=== PATIENT | female | born 1985 | race Caucasian/White ===

== ENCOUNTER 2017-09-24 15:59 | Emergency (ER) | payer MEDICAID, OTHER ==
[~2017-09-24] VITALS: Ht 157.5 cm; Wt 62.1 kg
[2017-09-24] MEDS ORDERED: CORTISPORIN EAR10 ML LEFT EAR (16:34)
[2017-09-24 16:40] VITALS: BP 118/72
[2017-09-24 16:52] VITALS: BP 110/66
--- NOTE | 2017-09-24 22:26 | Emergency Room Report ---
History of Present Illness General Chief Complaint: Earache Source: Patient Present Illness HPI The patient is a 30-year-old female presenting for left ear pain for the past 2 days. Pain is 8/10 dull ache and does not radiate. She admits to using Q-tips recently. She denies any changes in hearing. She denies any fever or chills. She denies any other symptoms Patient History Past Medical History: see triage record Pertinent Family History: none Last Menstrual Period: 09/15/17 Now: No : 9 Para: 2 Reviewed Nursing Documentation: PMH: Agreed, PSxH: Agreed Nursing Documentation-PM Past Medical History: No Stated History Review of Systems All Other Systems: negative except mentioned in HPI Physical Exam Vital Signs Date Time Temp Pulse Resp B/P (MAP) Pulse Ox O2 Delivery O2 Flow Rate FiO2 09/24/17 16:21 98.1 84 18 118/72 100 Room Air Sp02 EP Interpretation: reviewed, normal General Appearance: no apparent distress, alert, GCS 15, non-toxic Head: normocephalic, atraumatic ENT: normal pharynx, no angioedema, normal voice, other - L EAC erythema and edema with white DC Neck: full range of motion, supple/symm/no masses Respiratory: chest non-tender, lungs clear, normal breath sounds, speaking full sentences Musculoskeletal: back normal, gait/station normal, normal range of motion, non- tender Neurologic: alert, oriented x3, responsive, motor strength/tone normal, sensory intact, speech normal Psychiatric: judgement/insight normal, memory normal, mood/affect normal, no suicidal/homicidal ideation Skin: normal color, no rash, warm/dry, well hydrated Medical Decision Making PA Attestation Dr. Shafer is my supervising physician. Patient management was discussed with my supervising physician Diagnostic Impression: Primary Impression: Otitis externa of left ear Qualified Codes: H60.502 - Unspecified acute noninfective otitis externa, left ear ER Course The patient is a 30-year-old female presenting for left ear pain for the past 2 days Differential diagnosis include but not limited to otitis externa, otitis media, mastoiditis, sinusitis, pharyngitis Physical exam: Vitals within normal limits. No apparent distress. HEENT: Left ear external auditory canal is erythematous and edematous. White discharge is noted. Tympanic membrane is intact. No bulging. There is cervical lymphadenopathy. Otherwise exam is unremarkable The patient will be discharged home with a prescription for Cortisporin Last Vital Signs Date Time Temp Pulse Resp B/P (MAP) Pulse Ox O2 Delivery O2 Flow Rate FiO2 09/24/17 16:52 98.1 66 19 110/66 99 Room Air Status: improved Disposition: HOME, SELF-CARE Condition: Improved Scripts Neomycin/Polymyxin B Sulf/Hc* (CORTISPORIN EAR SOLUTION*) 10 Ml Solution 4 DROP LEFT EAR QID, #10 ML 0 Refills Prov: CECILY CRUZ 09/24/17 Referrals: [facility],REFERRING (PCP) Patient Instructions: Otitis Externa Additional Instructions: I discussed my findings with the patient. All questions and concerns have been answered. Treatment and medication compliance have been addressed. I advised the patient that they need to follow up with PMD in 3-5 days. Return to ED if symptoms worsen, new symptoms arise, or if needed for any reason. Patient verbalized understanding of discharge instructions. CECILY CRUZ Sep 24, 2017 22:26
== END 2017-09-24 16:51 | disposition home or self-care (01) ==
LOC: EMR 16:33
DX: H60.92 Unspecified otitis externa, left ear (principal)
CPT/HCPCS: 99283

== ENCOUNTER 2019-01-15 19:25 | Emergency (ER) | payer MEDICAID ==
[~2019-01-15] VITALS: Ht 160 cm; Wt 63.5 kg
[~2019-01-15 19:25] MED LIST: CORTISPORIN EAR10 ML LEFT EAR
[2019-01-15] MEDS ORDERED: NKM (19:32)
[2019-01-15 19:42] VITALS: BP 118/83
--- NOTE | 2019-01-15 19:43 | Emergency Room Report ---
History of Present Illness General Chief Complaint: Upper Respiratory Illness Source: Patient Present Illness HPI 33-year-old female with no significant past medical history here complaining of 2 weeks of dry cough. She reports she started having sore throat and swollen anterior cervical lymph nodes 2 weeks ago with low-grade fever has been taking Mucinex for symptom relief without improvement. Denies rhinorrhea, congestion, headache, abdominal pain, nausea vomiting, dizziness, shortness of breath, chest pain, palpitation. denies Wheezing and all other associated symptoms Allergies: Coded Allergies: No Known Allergies (Unverified , 01/15/19) Patient History Past Medical History: see triage record Past Surgical History: none Pertinent Family History: unable to obtain Last Menstrual Period: 12/20/18 Now: No Reviewed Nursing Documentation: PMH: Agreed; PSxH: Agreed Nursing Documentation-PMH Past Medical History: No Stated History Review of Systems All Other Systems: negative except mentioned in HPI Physical Exam Vital Signs Date Time Temp Pulse Resp B/P (MAP) Pulse Ox O2 Delivery O2 Flow Rate FiO2 01/15/19 19:27 98.2 85 14 118/83 94 Room Air Sp02 EP Interpretation: reviewed, normal General Appearance: normal inspection, well appearing, no apparent distress Head: normocephalic, atraumatic Eyes: bilateral eye normal inspection, bilateral eye PERRL ENT: no angioedema, normal voice, TMs + canals normal, tonsillar swelling, tonsillar exudate Neck: supple, other - ant cervical lymphadenopathy Respiratory: normal inspection, lungs clear, normal breath sounds, no rhonchi, no wheezing Cardiovascular #1: normal inspection, regular rate, rhythm, no edema, no gallop Gastrointestinal: normal inspection, normal bowel sounds, soft, no guarding Genitourinary: no CVA tenderness Musculoskeletal: normal inspection, back normal Neurologic: normal inspection, alert, oriented x3 Psychiatric: normal inspection, judgement/insight normal Skin: normal inspection, normal color, no rash Lymphatic: adenopathy - ant cervical Medical Decision Making PA Attestation All my diagnosis and treatment plans were reviewed ad discussed with my supervising physician Dr. Martínez Diagnostic Impression: Primary Impression: Bronchitis ER Course 33-year-old female with no significant past medical history here complaining of 2 weeks of dry cough. She reports she started having sore throat and swollen anterior cervical lymph nodes 2 weeks ago with low-grade fever has been taking Mucinex for symptom relief without improvement. Denies rhinorrhea, congestion, headache, abdominal pain, nausea vomiting, dizziness, shortness of breath, chest pain, palpitation. denies Wheezing and all other associated symptoms Ddx considered but are not limited to: Bronchitis, pneumonia, URI, strep pharyngitis Vital signs: are WNL, pt. is afebrile H&PE are most consistent with bronchitis secondary to strep ORDERS: Elan Serra, Augmentin ED INTERVENTIONS: None required at this time. DISCHARGE: At this time pt. is stable for d/c to home. Will provide printed patient care instructions, and any necessary prescriptions. Care plan and follow up instructions have been discussed with the patient prior to discharge. Last Vital Signs Date Time Temp Pulse Resp B/P (MAP) Pulse Ox O2 Delivery O2 Flow Rate FiO2 01/15/19 19:27 98.2 85 14 118/83 94 Room Air Disposition: HOME, SELF-CARE Condition: Stable Scripts Benzonatate* (TESSALON PERLE*) 100 Mg Capsule 100 MG ORAL THREE TIMES A DAY, #21 PERLE Prov: Sandra Hermosillo 01/15/19 Amoxicillin/Potassium Clav 875-125* (AUGMENTIN 875-125 TABLET*) 1 Each Tablet 1 TAB ORAL TWICE A DAY for 10 Days, #20 TAB Prov: Sandra Hermosillo 01/15/19 Patient Instructions: Acute Bronchitis, Zyss-me-Omgs Additional Instructions: follow up with primary Dr if no improvement Sandra Hermosillo Jan 15, 2019 19:43
[2019-01-15] MEDS ORDERED: AUGMENTIN 875-1 EAC1 ORAL (19:44)
[2019-01-15] MEDS ORDERED: TESSALON PERLE100 MG ORAL (19:44)
[2019-01-15 20:15] VITALS: BP 118/83
== END 2019-01-15 20:15 | disposition home or self-care (01) ==
LOC: EMR 19:39
DX: J20.9 Acute bronchitis, unspecified (principal)
CPT/HCPCS: 99283

== ENCOUNTER 2019-01-28 08:27 | Emergency (ER) | payer MEDICAID, OTHER ==
[~2019-01-28] VITALS: Ht 160 cm; Wt 61.2 kg
[~2019-01-28 08:27] MED LIST changes: +AUGMENTIN 875-1 EAC1 ORAL; +NKM; +TESSALON PERLE100 MG ORAL
--- NOTE | 2019-01-28 08:49 | NUR ---
ED Nurse Note: PT WALKED IN TO ER TODAY FROM HOME. AOX4. PT C/O PERSISTENT SORE THROAT X 2 WEEKS AGO. PT STATES SHE WAS SEEN [place] [facility] [place] [facility] [place] AND WAS GIVEN A SCRIPT FOR AMOXICILLIN. PT ADMITS THAT SHE WAS COMPLIANT WITH MEDS INITIALLY BUT DID NOT FINISH THEM BECAUSE SHE STARTED TO FEEL BETTER. PT NOW C/O THAT SORE THROAT IS COMING BACK AND IS NOW RADIATING TO BILATERAL EARS. PT DENIES DISCHARGE, BLEEDING, OR CHANGES IN HEARING.
[2019-01-28 08:52] VITALS: BP 122/82
--- NOTE | 2019-01-28 09:28 | Emergency Room Report ---
History of Present Illness General Chief Complaint: Sore Throat Source: Patient Present Illness HPI This patient states that she developed a sore throat a few weeks ago. She was seen here 3 weeks ago for the same symptoms and was placed on a course of Augmentin for strep pharyngitis. Patient states she took a few doses but then stopped taking the Augmentin. She states that she had felt much better for about a week. However, she states that over the past few days she has developed the sore throat again. She states she also has fullness in her ears and is developing a cough. She denies fever or chills. She denies neck pain. She denies headache or blurry vision. She has no other complaints. Allergies: Coded Allergies: No Known Allergies (Unverified , 01/15/19) Patient History Past Medical History: none, see triage record Social History: Denies: smoking, alcohol use, drug use Last Menstrual Period: 12/2018 Now: No Reviewed Nursing Documentation: PMH: Agreed; PSxH: Agreed Nursing Documentation-PMH Past Medical History: No Stated History Review of Systems All Other Systems: negative except mentioned in HPI Physical Exam Vital Signs Date Time Temp Pulse Resp B/P (MAP) Pulse Ox O2 Delivery O2 Flow Rate FiO2 01/28/19 08:39 98.6 75 20 97 Room Air 01/28/19 08:52 122/82 Sp02 EP Interpretation: reviewed, normal General Appearance: no apparent distress, alert, GCS 15, non-toxic Head: normocephalic, atraumatic Eyes: bilateral eye normal inspection ENT: hearing grossly normal, normal pharynx, no angioedema, normal voice Neck: full range of motion, supple/symm/no masses Respiratory: lungs clear, normal breath sounds, no respiratory distress, no retraction, no accessory muscle use, speaking full sentences Cardiovascular #1: regular rate, rhythm, no edema Rectal: deferred Musculoskeletal: back normal, gait/station normal, normal range of motion, non- tender Neurologic: alert, oriented x3, responsive, motor strength/tone normal, sensory intact, speech normal Psychiatric: judgement/insight normal, memory normal, mood/affect normal, no suicidal/homicidal ideation Skin: normal color, no rash, warm/dry, well hydrated Medical Decision Making Diagnostic Impression: Primary Impression: Pharyngitis ER Course This patient has a clinical presentation consistent with pharyngitis. Physical exam is consistent with a viral etiology, however, the patient states that the antibiotics had temporarily relieved her symptoms. I will go ahead and re- prescribe Augmentin and Tessalon Perles. There is no evidence of peritonsillar abscess or deep neck abscess. There is no airway edema. Overall, this patient had a very benign examination. The patient is instructed to get over-the- counter lozenges acetaminophen and ibuprofen. The patient was given return precautions and followup instructions. Last Vital Signs Date Time Temp Pulse Resp B/P (MAP) Pulse Ox O2 Delivery O2 Flow Rate FiO2 01/28/19 08:52 98.4 72 18 122/82 99 Room Air Status: improved Disposition: HOME, SELF-CARE Condition: Improved Referrals: NON PHYSICIAN (PCP) Patient Instructions: Sore Throat Rani Corbett DO January 28, 2019 09:28
[2019-01-28] MEDS ORDERED: TESSALON PERLE100 MG ORAL (09:35)
[2019-01-28] MEDS ORDERED: AUGMENTIN 875-1 EAC1 ORAL (09:35)
--- NOTE | 2019-01-28 09:56 | NUR ---
ED Nurse Note: PT SITTING PEACEFULLY IN BED IN NAD. AOX4. PRESCRIPTION AND DISCHARGE PAPERWORK EXPLAINED TO PT. PT VERBALIZES UNDERSTANDING AND ALL QUESTIONS ANSWERED. PRESCRIPTIONS SENT ELECTRONICALLY TO PT'S PHARMACY. DISCHARGE PAPERWORK GIVEN TO PT AND ID WRISTBAND REMOVED. PT WALKED OUT OF ER WITH STEADY GAIT AND ALL BELONGINGS.
[2019-01-28 09:57] VITALS: BP 118/84
== END 2019-01-28 09:58 | disposition home or self-care (01) ==
LOC: EMR 09:09
DX: J02.9 Acute pharyngitis, unspecified (principal)
CPT/HCPCS: 99281

== ENCOUNTER 2019-02-09 16:58 | Emergency (ER) | payer MEDICAID ==
[~2019-02-09] VITALS: Ht 160 cm; Wt 63.5 kg
[2019-02-09 17:10] VITALS: BP 116/79
--- NOTE | 2019-02-09 17:41 | Emergency Room Report ---
History of Present Illness General Chief Complaint: Eye Problems Source: Patient Present Illness HPI 33-year-old female presents to the emergency department complaining of 10 out of 10 in severity tenderness with some swelling just below the right eyelid 2 days. Patient also reports she has been having an ongoing sore throat for approximately one week with subjective fevers and chills. Patient states that she has been taking csen-sep-[id number] anti-inflammatories with no relief. She denies trauma to the eyes she denies erythema she denies history of allergies. Patient denies symptoms inside the eyes such as increased lacrimation, eye pain or pain with eye movements. She denies cough, headache, neck pain/stiffness. Allergies: Coded Allergies: No Known Allergies (Unverified , 01/15/19) Patient History Past Medical History: see triage record Past Surgical History: none Pertinent Family History: none Now: No Reviewed Nursing Documentation: PMH: Agreed; PSxH: Agreed Nursing Documentation-PMH Past Medical History: No Stated History Review of Systems All Other Systems: negative except mentioned in HPI Physical Exam Vital Signs Date Time Temp Pulse Resp B/P (MAP) Pulse Ox O2 Delivery O2 Flow Rate FiO2 02/09/19 17:10 98.2 93 19 116/79 (91) 97 Room Air Sp02 EP Interpretation: reviewed, normal General Appearance: no apparent distress, alert, GCS 15, non-toxic Head: normocephalic, atraumatic Eyes: right eye other - swelling and tenderness just under the right lower eyelid. no pain with EOM's. ; bilateral eye normal inspection, bilateral eye PERRL ENT: hearing grossly normal, normal voice, TMs + canals normal, uvula midline, moist mucus membranes, nasal congestion, pharyngeal erythema Neck: full range of motion Respiratory: lungs clear, normal breath sounds, speaking full sentences Cardiovascular #1: regular rate, rhythm Musculoskeletal: back normal, gait/station normal, normal range of motion, non- tender Neurologic: alert, oriented x3, responsive, motor strength/tone normal, sensory intact, speech normal, grossly normal Psychiatric: judgement/insight normal Skin: normal color, no rash, warm/dry, well hydrated Lymphatic: no adenopathy Medical Decision Making PA Attestation Dr. Juan is my supervising Physician whom patient management has been discussed with. Diagnostic Impression: Primary Impression: Pharyngitis, acute Qualified Codes: J02.0 - Streptococcal pharyngitis Additional Impression: Preseptal cellulitis of right eye ER Course 33-year-old female presents to the emergency department complaining of 10 out of 10 in severity tenderness with some swelling just below the right eyelid 2 days. Patient also reports she has been having an ongoing sore throat for approximately one week with subjective fevers and chills. Patient states that she has been taking kdat-rme-vutyhof anti-inflammatories with no relief. She denies trauma to the eyes she denies erythema she denies history of allergies. Patient denies symptoms inside the eyes such as increased lacrimation, eye pain or pain with eye movements. She denies cough, headache, neck pain/stiffness. Ddx considered but are not limited to: pharyngitis, strep, MEDICAL INSTRUMENT CABLE FABRICATOR, ludwigs angina, URI, preseptal cellulitis, Orbital cellulitis, Allergies, chalazion. Vital signs: are WNL, pt. is afebrile H&PE are most consistent with: preseptal cellulitis possibly secondary to pharyngitis presumed to be strep. ORDERS: None required at this time as the diagnosis is clinical ED INTERVENTIONS: none required at this time. DISCHARGE: At this time pt. is stable for d/c to home. Will provide printed patient care instructions, and any necessary prescriptions. Care plan and follow up instructions have been discussed with the patient prior to discharge. Last Vital Signs Date Time Temp Pulse Resp B/P (MAP) Pulse Ox O2 Delivery O2 Flow Rate FiO2 02/09/19 17:10 98.2 93 19 116/79 (91) 97 Room Air Disposition: HOME, SELF-CARE Condition: Stable Scripts Cetirizine Hcl/Pseudoephedrine (ZYRTEC-D TABLET) 1 Each Tab.er.12h 1 EACH ORAL Q12HR for 10 Days, #10 TAB Prov: Marlin Molina 02/09/19 Amoxicillin/Potassium Clav 875-125* (AUGMENTIN 875-125 TABLET*) 1 Each Tablet 1 TAB ORAL TWICE A DAY for 10 Days, #20 TAB Prov: Marlin Molina 02/09/19 Patient Instructions: Pharyngitis, [id number]-[id number], Preseptal Cellulitis, Adult Additional Instructions: Take medications as directed. Follow up with a Primary Care Provider in 3-5 days, even if your symptoms have resolved. --Please review list of primary care clinics, if you do not already have a primary care provider Return sooner to ED if new symptoms occur, or current symptoms become worse. - Please note that this Emergency Department Report was dictated using [employer] ordnance disposal technician technology software, occasionally this can lead to erroneous entry secondary to interpretation by the dictation equipment. Marlin Molina February 09, 2019 17:41
[2019-02-09] MEDS ORDERED: AUGMENTIN 875-1 EAC1 ORAL (17:42)
[2019-02-09] MEDS ORDERED: ZYRTEC-D TABLE1 EACH ORAL (17:42)
[2019-02-09 17:51] VITALS: BP 116/79
--- NOTE | 2019-02-09 17:53 | NUR ---
ER DISCHARGE NOTE: Patient is cleared to be discharged per ERMD, pt is aox4, on room air, with stable vital signs. pt was given dc and prescription instructions, pt was able to verbalize understanding, pt is able to ambulate with steady gait. pt took all belongings.
[2019-02-10] MEDS ORDERED: BACTRIM DS TAB1 EAC1 ORAL (12:49)
[2019-02-10] MEDS ORDERED: PREDNISONE10 MG ORAL (12:49)
== END 2019-02-09 18:00 | disposition home or self-care (01) ==
LOC: EMR 17:50
DX: H00.032 Abscess of right lower eyelid (principal); J02.0 Streptococcal pharyngitis
CPT/HCPCS: 99282

== ENCOUNTER 2019-02-10 12:07 | Emergency (ER) | payer MEDICAID ==
[~2019-02-10] VITALS: Ht 160 cm; Wt 63.5 kg
[~2019-02-10 12:07] MED LIST changes: +ZYRTEC-D TABLE1 EACH ORAL
[2019-02-10 12:23] VITALS: BP 131/87
--- NOTE | 2019-02-10 12:46 | Emergency Room Report ---
History of Present Illness General Chief Complaint: General Complaint Source: Patient Present Illness HPI 33-year-old female with no significant past medical history here complaining of swelling in the right side of trauma stays mainly with no pain x1 day. Reports that she get his posturals years of her neck when she tries to pop them she is not having swelling side of the affected area. She reports she currently has a small pustule in the right frontal scalp with no pain radiation. Is also here yesterday for pharyngitis symptoms and was discharged with amoxicillin. denies eye discharge, tingling and numbness in the right side of his face, and pruritus. Fever and chills, no vomiting. Patient is rating the pain 3 out of 10 upon palpation of the posturals, and has not taken any medication for pain relief. denies Chest pain, S OB, palpitation, and all other associated symptoms Allergies: Coded Allergies: No Known Allergies (Unverified , 01/15/19) Patient History Past Medical History: see triage record Past Surgical History: unable to obtain Pertinent Family History: none Last Menstrual Period: 01/11/19 Now: No Immunizations: UTD Reviewed Nursing Documentation: PMH: Agreed; PSxH: Agreed Nursing Documentation-PMH Past Medical History: No Stated History Review of Systems All Other Systems: negative except mentioned in HPI Physical Exam Vital Signs Date Time Temp Pulse Resp B/P (MAP) Pulse Ox O2 Delivery O2 Flow Rate FiO2 02/10/19 12:23 98.1 88 18 131/87 (102) 97 Room Air Sp02 EP Interpretation: reviewed, normal General Appearance: normal inspection, well appearing Head: normocephalic Medical Decision Making PA Attestation All my diagnosis and treatment plans were reviewed ad discussed with my supervising physician Dr. Zhou Diagnostic Impression: Primary Impression: Folliculitis Additional Impression: Swelling of right eye ER Course 33-year-old female with no significant past medical history here complaining of swelling in the right side of trauma stays mainly with no pain x1 day. Reports that she get his posturals years of her neck when she tries to pop them she is not having swelling side of the affected area. She reports she currently has a small pustule in the right frontal scalp with no pain radiation. Is also here yesterday for pharyngitis symptoms and was discharged with amoxicillin. denies eye discharge, tingling and numbness in the right side of his face, and pruritus. Fever and chills, no vomiting. Patient is rating the pain 3 out of 10 upon palpation of the posturals, and has not taken any medication for pain relief. denies Chest pain, S OB, palpitation, and all other associated symptoms Ddx considered but are not limited to: deep abscess, folliculitis, angioedema, allergic reaction, anaphylaxis Vital signs: are WNL, pt. is afebrile H&PE are most consistent with: Folliculitis of the scalp, facial swelling secondary to folliculitis ORDERS: Bactrim, prednisone ED INTERVENTIONS: None required at this time. I explained to the patient that hormonal changes can contribute to recurrences of folliculitis in the scalp also folliculitis is usually secondary due to shaving however patient should check with her primary care provider and be referred to a fermenter if she keeps getting facial swelling secondary to trying to pop her hair follicles. DISCHARGE: At this time pt. is stable for d/c to home. Will provide printed patient care instructions, and any necessary prescriptions. Care plan and follow up instructions have been discussed with the patient prior to discharge. Last Vital Signs Date Time Temp Pulse Resp B/P (MAP) Pulse Ox O2 Delivery O2 Flow Rate FiO2 02/10/19 12:23 98.1 88 18 131/87 (102) 97 Room Air Disposition: HOME, SELF-CARE Condition: Stable Scripts Prednisone* (PREDNISONE*) 10 Mg Tablet 10 MG ORAL DAILY for 5 Days, #5 TAB 0 Refills Prov: Sandra Hermosillo 02/10/19 Trimethoprim/Sulfamethoxazole 160/800* (BACTRIM DS TABLET*) 1 Each Tablet 1 TAB ORAL TWICE A DAY for 7 Days, #14 TAB Prov: Sandra Hermosillo 02/10/19 Patient Instructions: Folliculitis Additional Instructions: take medication as directed, avoid touching the affected area, if fever chills pus drainage return to the emergency room Sandra Hermosillo February 10, 2019 12:46
[2019-02-10] MEDS ORDERED: PREDNISONE10 MG ORAL (12:49)
[2019-02-10] MEDS ORDERED: BACTRIM DS TAB1 EAC1 ORAL (12:49)
[2019-02-10 12:54] VITALS: BP 135/80
== END 2019-02-10 12:54 | disposition home or self-care (01) ==
LOC: EMR 12:50
DX: L73.9 Follicular disorder, unspecified (principal); R60.0 Localized edema
CPT/HCPCS: 99282

== ENCOUNTER 2020-05-19 18:14 | Emergency (ER) | payer SELFPAY ==
[~2020-05-19] VITALS: Ht 157.5 cm; Wt 61.2 kg
[~2020-05-19 18:14] MED LIST changes: +BACTRIM DS TAB1 EAC1 ORAL; +PREDNISONE10 MG ORAL
[2020-05-19 18:28] VITALS: BP 118/72
--- NOTE | 2020-05-19 18:29 | NUR ---
ED Nurse Note: Pt ambulated to ED d/t generalized bodyaches, chills and headache going on for a week. Pt is AOx4, calm and cooperative, per pt she was tested covid (-) last May 15; VSS, on RA, breathing even and unlabored, afebrile on triage. will continue to monitor.
--- NOTE | 2020-05-19 18:31 | NUR ---
ED Nurse Note: per pt she took tylenol HOSPICE HOME CARE COORDINATOR.
--- NOTE | 2020-05-19 18:31 | NUR ---
Note clintonprieto in EDM - 05/19/20 at 1831 by MEGHAN ER DISCHARGE NOTE: Patient is cleared to be discharged per ERMD, pt is aox4, on room air, with stable vital signs. pt was given dc and prescription instructions, pt was able to verbalize understanding, pt id band and iv site removed without complications. pt is able to ambulate with steady gait. pt took all belongings.
--- NOTE | 2020-05-19 18:36 | NUR ---
ED Nurse Note: x-ray at bedside.
--- NOTE | 2020-05-19 18:58 | Diagnostic Imaging Report ---
EXAM: XR Chest, 1 View CLINICAL HISTORY: SOB TECHNIQUE: Frontal view of the chest. COMPARISON: No relevant prior studies available. FINDINGS: Lungs: Unremarkable. No consolidation. Pleural space: Unremarkable. No pneumothorax. Heart: Unremarkable. No cardiomegaly. Mediastinum: Unremarkable. Bones/joints: Unremarkable. IMPRESSION: No evidence of acute pulmonary disease
--- NOTE | 2020-05-19 19:09 | Emergency Room Report ---
History of Present Illness General Chief Complaint: Flu Like Symptoms Source: Patient (Sandra Hermosillo) Present Illness HPI 34-year-old female with no symptom past medical history here complaining of 1 week of generalized body ache, feeling feverish and chills. 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 Denies any abdominal pain, nausea vomiting diarrhea. Denies loss of taste and smell, sore throat, cough and congestion. Denies any shortness of breath. Complains of minimal intermittent chest pain that comes and goes when driving. Denies any chest pain radiation. Denies any palpitation. Denies any pleuritic chest pain. Denies any bilateral calf cramping. Reports that she had a cover testing done 4 days ago and she tested negative. Has not taken medication for symptom relief. Denies any headache and dizziness at this time. Denies any syncope. Denies . Denies urinary symptoms. 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) Patient History Past Medical History: see triage record Past Surgical History: none Pertinent Family History: none Last Menstrual Period: 05/08/20 Now: No Immunizations: UTD Reviewed Nursing Documentation: PMH: Agreed; PSxH: Agreed (Sandra Hermosillo) Nursing Documentation-PMH Past Medical History: No Stated History (Sandra Hermosillo) Review of Systems All Other Systems: negative except mentioned in HPI (Sandra Hermosillo) Physical Exam Vital Signs Date Time Temp Pulse Resp B/P (MAP) Pulse Ox O2 Delivery O2 Flow Rate FiO2 05/19/20 18:20 98.1 97 16 118/72 (87) 98 Room Air Sp02 EP Interpretation: reviewed, normal General Appearance: no apparent distress, alert, GCS 15, non-toxic Head: normocephalic, atraumatic Eyes: bilateral eye normal inspection, bilateral eye PERRL ENT: hearing grossly normal, normal pharynx, no angioedema, normal voice Neck: full range of motion, supple/symm/no masses Respiratory: chest non-tender, lungs clear, normal breath sounds, no rhonchi, no wheezing, speaking full sentences Cardiovascular #1: regular rate, rhythm, no edema Gastrointestinal: normal bowel sounds, non tender, soft, no mass, non-distended , no guarding, no rebound Rectal: deferred Genitourinary: no CVA tenderness Musculoskeletal: back normal, no calf tenderness Neurologic: alert, motor strength/tone normal, oriented x3, sensory intact, responsive, speech normal Psychiatric: judgement/insight normal, memory normal, mood/affect normal, no suicidal/homicidal ideation Skin: no rash Lymphatic: no adenopathy (Sandra Hermosillo) Medical Decision Making PA Attestation All diagnosis and treatment plans were discussed and reviewed by my supervising physician Dr. Menon (Sandra Hermosillo) Diagnostic Impression: Primary Impression: Generalized body aches Additional Impressions: UTI (urinary tract infection) Fatty liver ER Course 34-year-old female with no symptom past medical history here complaining of 1 week of generalized body ache, feeling feverish and chills. 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 Denies any abdominal pain, nausea vomiting diarrhea. Denies loss of taste and smell, sore throat, cough and congestion. Denies any shortness of breath. Complains of minimal intermittent chest pain that comes and goes when driving. Denies any chest pain radiation. Denies any palpitation. Denies any pleuritic chest pain. Denies any bilateral calf cramping. Reports that she had a cover testing done 4 days ago and she tested negative. Has not taken medication for symptom relief. Denies any headache and dizziness at this time. Denies any syncope. Denies . Denies urinary symptoms. Ddx considered but are not limited to: NV, Angina, COPD, GERD, coronavirus Vital signs: are WNL, pt. is afebrile H&PE are most consistent with elevated d-dimer, generalized body ache, chest pain ORDERS: EKG, Chest XR, CBC, CMP, UA, urine test, troponin, d-dimer, CTA chest ED INTERVENTIONS: NS bolus I signed out the patient to Dr. Menon at 8:30 PM (Sandra Hermosillo) ER Course UA shows UTI. Doubt pyelonephritis as patient is afebrile and well appearing with no significant abdominal pain or flank tenderness. UCx sent. CTA negative for PE. EKG is non ischemic. Trop negative x 1. Labs unremarkable. COVID swab is negative. Doubt ACS. HEART score is 0. Doubt PE. CTA negative. Symptoms are likely 2/2 UTI or viral syndrome COVID PCR is negative with no radiographic findings consistent with atypical pneumonia. ON re-eval after fluids, patient states she feels better. The atypical chest wall pain she had that self-resolved is not classic for pericarditis or myocarditis, and the patient has no significant risk factors for a pericardial effusion and has stable vitals signs, unlikely to have tamponade. Will DC with keflex F/U PMD in 1-2 days Strict return ER precautions were discussed (Dunia Menon D.O.) EKG Diagnostic Results Rate: normal Rhythm: NSR ST Segments: no acute changes Other Impression No acute ST changes (Sandra Hermosillo) Chest X-Ray Diagnostic Results Chest X-Ray Diagnostic Results : Chest X-Ray Ordered: Yes # of Views/Limited/Complete: 1 View Indication: Other EP Interpretation: Yes PA Xray: Interpretation reviewed, by supervising MD, and agrees with findings. Interpretation: no consolidation, no effusion, no pneumothorax Impression: No acute disease Electronically Signed by: Sandra FOSTER Scribnitin Text COMPARISON: No relevant prior studies available. FINDINGS: Lungs: Unremarkable. No consolidation. Pleural space: Unremarkable. No pneumothorax. Heart: Unremarkable. No cardiomegaly. Mediastinum: Unremarkable. Bones/joints: Unremarkable. IMPRESSION: No evidence of acute pulmonary disease (Sandra Hermosillo) CT/MRI/US Diagnostic Results CT/MRI/US Diagnostic Results : Impression CTA Chest w Contrast FINDINGS: Pulmonary arteries: No central or peripheral pulmonary embolism is noted. Aorta: Thoracic aorta and its branches are unremarkable. No thoracic aortic aneurysm. Lungs: Evaluation of the right pulmonary parenchyma reveals minimal subsegmental atelectasis posteriorly. Evaluation of the left pulmonary parenchyma reveals minimal subsegmental atelectasis posteriorly. The airways patent. No mass. Pleural space: Unremarkable. No significant effusion. No pneumothorax. Heart: Unremarkable. No cardiomegaly. No significant pericardial effusion. No evidence of RV dysfunction. Bones/joints: The clavicles are unremarkable. The ribs are grossly unremarkable. Alignment of the thoracic spine is unremarkable. The sternum is unremarkable. No acute fracture. Soft tissues: Unremarkable. Lymph nodes: Unremarkable. No enlarged lymph nodes. Liver: Diffuse fatty infiltration of the liver is noted. IMPRESSION: No peripheral or central pulmonary emboli detected. Dictated By: Rudy Mckeon M.D. (Dunia Menon D.O.) Last Vital Signs Date Time Temp Pulse Resp B/P (MAP) Pulse Ox O2 Delivery O2 Flow Rate FiO2 05/19/20 18:28 97 16 Room Air 05/19/20 18:28 98.1 118/72 98 (Sandra Hermosillo) Reevaluation Time: 21:41 Status: improved (Dunia Menon D.O.) Disposition: HOME, SELF-CARE Admit Decision Time: 21:41 (Dunia Menon D.O.) Condition: Stable Scripts Cephalexin* (KEFLEX*) 500 Mg Capsule 500 MG ORAL EVERY 12 HOURS for 10 Days, #20 CAP 0 Refills Prov: Dunia Menon D.O. 05/19/20 Referrals: NOT CHOSEN IPA/,REFERRING (PCP) Departure Forms: Return to Work Patient Instructions: Urinary Tract Infection, [id number] Additional Instructions: Instructions for patient/certified personal trainer: Follow up with your physician in 1 to 2 days for repeat exam.. Follow-up with your doctor sooner if your condition requires a more timely clinical reevaluation. Return to the emergency department immediately if you feel that your condition is worsening or if you have any new or concerning symptoms. Review your discharge instructions and take any prescriptions given as instructed. You had a urine culture done to evaluate for specific types of bacteria associated with your urinary infection. You were given an antibiotic that should treat most bacteria that usually occur with a urinary infection, but there is always the possibility of antibiotic resistance. You will receive a telephone call if it is positive. If you do not receive a call, they are likely negative, but you should return to medical records to get your results to be sure, or have your primary doctor obtain them from our hospital, and especially if you are having persistent symptoms. If you are having persistent symptoms and are not able to get a hold of your culture results or your regular doctor you should return to the ER for a reevaluation. Sandra Hermosillo May 19, 2020 19:09 Dunia Menon D.O. May 19, 2020 21:44
--- NOTE | 2020-05-19 19:20 | NUR ---
ED Nurse Note: hand off given to Sofia ANSARI.
--- NOTE | 2020-05-19 19:20 | NUR ---
ED Nurse Note: blood and rapid covid swab sent to lab.
[2020-05-19 19:48] LABS: BASOPHILS % (AUTO) 0.9 % (0.0-2.0); HEMATOCRIT 40.1 % (37.0-47.0); HEMOGLOBIN 13.4 G/DL (12.0-16.0); LYMPHOCYTES % (AUTO) 31.5 % (20.0-45.0); MEAN CORPUSCULAR VOLUME 86 FL (80-99); NEUTROPHILS % (AUTO) 59.5 % (45.0-75.0); PLATELET COUNT 236 K/UL (150-450); RED BLOOD COUNT 4.65 M/UL (4.20-5.40); RED CELL DISTRIBUTION WIDTH 11.3 % (11.6-14.8); WHITE BLOOD COUNT 7.4 K/UL (4.8-10.8)
[2020-05-19 20:05] LABS: ANION GAP 8 mmol/L (5-15); BLOOD UREA NITROGEN 7 mg/dL (7-18); CALCIUM 8.8 MG/DL (8.5-10.1); CARBON DIOXIDE 27 MMOL/L (21-32); CHLORIDE 104 MMOL/L (98-107); CREATININE 1.1 MG/DL (0.55-1.30); POTASSIUM 4.5 MMOL/L (3.5-5.1); SODIUM 139 MMOL/L (136-145)
--- NOTE | 2020-05-19 20:10 | NUR ---
Nurse Note: Urine collected and sent to lab. All orders completed per ER PA. NS infusion completed; SLIV patent. Pt ambulatory, no signs of acute distress. All safety measures met; will continue to montior.
[2020-05-19 20:18] LABS: ALANINE AMINOTRANSFERASE 49 U/L (12-78); ALBUMIN/GLOBULIN RATIO 0.7 (1.0-2.7); ALKALINE PHOSPHATASE 71 U/L (46-116); ASPARTATE AMINO TRANSFERASE 34 U/L (15-37); BILIRUBIN,TOTAL 0.5 MG/DL (0.2-1.0)
[2020-05-19 20:24] LABS: APPEARANCE,URINE CLEAR; BILIRUBIN, URINE NEGATIVE (NEGATIVE); GLUCOSE, URINE (UA) NEGATIVE (NEGATIVE); KETONES,URINE NEGATIVE (NEGATIVE); LEUKOCYTE ESTERASE ,URINE 2+ (NEGATIVE); NITRITE,URINE NEGATIVE (NEGATIVE); PH,URINE 5 (4.5-8.0); PROTEIN,URINE NEGATIVE (NEGATIVE); UROBILINOGEN,URINE NORMAL MG/DL (0.0-1.0)
[2020-05-19 20:29] LABS: COLOR,URINE YELLOW
[2020-05-19] MEDS ORDERED: Omnipaque 350 100ml vial INJ PRN (20:30)
--- NOTE | 2020-05-19 20:38 | NUR ---
Nurse Note: Pt left to radiology for CTA. IV patent. All safety measures met; will continue to montior.
--- NOTE | 2020-05-19 21:10 | Diagnostic Imaging Report ---
EXAM: CT Angiography Chest With Intravenous Contrast CLINICAL HISTORY: PE TECHNIQUE: Axial computed tomographic angiography images of the chest with intravenous contrast. CTDI is 30.70 mGy and DLP is 121.40 mGy-cm. One or more of the following dose reduction techniques were used: automated exposure control, adjustment of the mA and/or kV according to patient size, use of iterative reconstruction technique. MIP reconstructed images were created and reviewed. COMPARISON: 05/19/2020. FINDINGS: Pulmonary arteries: No central or peripheral pulmonary embolism is noted. Aorta: Thoracic aorta and its branches are unremarkable. No thoracic aortic aneurysm. Lungs: Evaluation of the right pulmonary parenchyma reveals minimal subsegmental atelectasis posteriorly. Evaluation of the left pulmonary parenchyma reveals minimal subsegmental atelectasis posteriorly. The airways patent. No mass. Pleural space: Unremarkable. No significant effusion. No pneumothorax. Heart: Unremarkable. No cardiomegaly. No significant pericardial effusion. No evidence of RV dysfunction. Bones/joints: The clavicles are unremarkable. The ribs are grossly unremarkable. Alignment of the thoracic spine is unremarkable. The sternum is unremarkable. No acute fracture. Soft tissues: Unremarkable. Lymph nodes: Unremarkable. No enlarged lymph nodes. Liver: Diffuse fatty infiltration of the liver is noted. IMPRESSION: No peripheral or central pulmonary emboli detected.
[2020-05-19] MEDS ORDERED: CEPHALEXIN500 MG ORAL ×2 (21:43→22:09)
[2020-05-19] MEDS ORDERED: Cephalexin 250mg/5ml Susp 100mL Bottle ORAL ONE (22:00)
[2020-05-19 22:10] VITALS: BP 124/74
--- NOTE | 2020-05-19 22:10 | NUR ---
ER DISCHARGE NOTE: Pt back from radiology; pt calm. IV patent. Patient is cleared to be discharged per ERMD. Pt is aox4, on room air, with stable vital signs. pPt was given dc and prescription instructions. Pt was able to verbalize understanding; instructed pt to follow up with primary care physican within one week. Pt id band and iv site removed without complications; IV site clean and bandaged. Pt is able to ambulate with steady gait. Pt took all belongings.
== END 2020-05-19 22:10 | disposition home or self-care (01) ==
LOC: EMR 18:30
DX: N39.0 Urinary tract infection, site not specified (principal); K76.0 Fatty (change of) liver, not elsewhere classified; R52 Pain, unspecified
CPT/HCPCS: 36415; 71045; 71275; 80053; 81003; 81025; 84443; 84484; 85025; 85379; 87086; 96360; 99284; J7030; Q9967; U0002